=== PATIENT | male | born 1960 | race Caucasian/White ===

== ENCOUNTER 2023-12-13 21:22 | Emergency (ER) | payer BC ==
[2023-12-13] MEDS: Sodium Chloride 0.9% 10 ML Syringe FLUSH PRN (22:03)
[2023-12-13] MEDS: Morphine 4 MG/ML Syringe IVPUSH ONE (22:04)
[2023-12-13] MEDS: Diphtheria,Pertussis(Acell),Tetanus Vaccine 0.5 ML Syringe IM ONE (22:18)
[2023-12-13] MEDS: LORazepam 2 MG/ML SDV IVPUSH ONE (23:28)
[2023-12-13 23:32] VITALS: BP 154/79; PULSE 76
== END 2023-12-13 23:44 | disposition home or self-care (01) ==
LOC: JD.ED 21:22
DX: M54.50 Low back pain, unspecified (principal); E78.00 Pure hypercholesterolemia, unspecified; E66.9 Obesity, unspecified; Z68.41 Body mass index [BMI] 40.0-44.9, adult; Z23 Encounter for immunization
CPT/HCPCS: 72128; 72131; 90471; 90715; 96374; 96375; 99283; J2060; J2270; J3490; 99284

== ENCOUNTER 2024-10-06 09:41 | Day surgery (SDC) | payer BC ==
[~2024-10-06 09:41] MED LIST: Propofol 200 MG/20 ML SDV ONE; Sodium Chloride 0.9% 10 ML Syringe FLUSH PRN; Sodium Chloride 0.9% 10 ML Syringe FLUSH SCH
[2024-10-06] MEDS: Lactated Ringers 1,000 ML IV SCH (10:10)
[2024-10-06 12:27] VITALS: BP 136/80; PULSE 63
== END 2024-10-06 12:30 | disposition home or self-care (01) ==
LOC: JD.SDS 09:41
PROVIDERS: ATTEND Surgery
DX: Z12.11 Encounter for screening for malignant neoplasm of colon (principal); K63.5 Polyp of colon; K64.8 Other hemorrhoids; G47.33 Obstructive sleep apnea (adult) (pediatric); E66.01 Morbid (severe) obesity due to excess calories; Z68.41 Body mass index [BMI] 40.0-44.9, adult; Z86.0101 Personal history of adenomatous and serrated colon polyps; Z79.899 Other long term (current) drug therapy
CPT/HCPCS: 00811; J2704; J7120

== ENCOUNTER 2024-10-29 15:07 | Emergency (ER) | payer BC ==
[2024-10-29 20:22] VITALS: BP 133/87; PULSE 88
== END 2024-10-29 19:44 | disposition home or self-care (01) ==
LOC: JD.ED 15:07
DX: S61.412A Laceration without foreign body of left hand, initial encounter (principal); E78.00 Pure hypercholesterolemia, unspecified; K21.9 Gastro-esophageal reflux disease without esophagitis; E66.9 Obesity, unspecified; Z68.41 Body mass index [BMI] 40.0-44.9, adult; Z87.891 Personal history of nicotine dependence; Z79.899 Other long term (current) drug therapy; W45.8XXA Other foreign body or object entering through skin, initial encounter
CPT/HCPCS: 12001; 73130; 96372; 99282; J0690

== ENCOUNTER 2024-11-15 06:00 | Day surgery (SDC) | payer BC ==
[~2024-11-15 06:00] MED LIST changes: -Propofol 200 MG/20 ML SDV ONE
[2024-11-15] MEDS: Lactated Ringers 1,000 ML IV SCH (06:25)
[2024-11-15] MEDS ORDERED: propofoL 500 MG/50 ML 50 ML ONE ×2 (06:29→07:46)
[2024-11-15] MEDS: oxyCODONE ER 10 MG TAB.ER PO SCH (06:31)
[2024-11-15] MEDS ORDERED: dexmedeTOMIDine HCl 200 MCG/2 ML SDV ONE (06:31)
[2024-11-15] MEDS ORDERED: Ondansetron 4 MG/2 ML SDV ONE (06:31)
[2024-11-15] MEDS ORDERED: Ropivacaine 0.5% 5 MG/ML 30 ML SDV ONE (07:24)
[2024-11-15] MEDS ORDERED: ePHEDrine 50 MG/ML SDV ONE (07:27)
[2024-11-15] MEDS ORDERED: Phenylephrine 1% 10 MG/ML SDV ONE (07:39)
[2024-11-15] MEDS ORDERED: Ondansetron 4 MG/2 ML SDV IVPUSH PRN (07:57)
[2024-11-15] MEDS ORDERED: Ketorolac 30 MG/ML SDV IVPUSH PRN (07:57)
[2024-11-15] MEDS: Morphine 8 MG, EPINEPHrine 0.3 MG, Cefuroxime 750 MG, Ketorolac 30 MG, Sodium Chloride ... PRN (08:23)
[2024-11-15] MEDS ORDERED: Propofol 200 MG/20 ML SDV ONE (08:24)
[2024-11-15] MEDS: fentaNYL 100 MCG/2 ML SDV IVPUSH PRN (09:23)
[2024-11-15 13:31] VITALS: BP 111/65; PULSE 56
== END 2024-11-15 13:20 | disposition home or self-care (01) ==
LOC: JD.SDS 06:00
PROVIDERS: ATTEND Orthopaedic Surgery
DX: M17.11 Unilateral primary osteoarthritis, right knee (principal); I10 Essential (primary) hypertension; G47.33 Obstructive sleep apnea (adult) (pediatric); E66.9 Obesity, unspecified; Z68.41 Body mass index [BMI] 40.0-44.9, adult; Z79.899 Other long term (current) drug therapy
CPT/HCPCS: 0055T; 27447; 64447; 73560; 97110; 97116; 97161; A9270; C1713; C1776; J0169; J0690; J0697; J1885; J2272; J2371; J2405; J2704; J2795; J3010; J3373; J7120; 01402; J3490